=== PATIENT | male | born 1985 | race Caucasian/White ===

== ENCOUNTER 2017-11-08 15:41 | Emergency (ER) | payer OTHER ==
[2017-11-08] MEDS ORDERED: Aspirin 81 MG Tab.Chew PO ONE (15:48)
[2017-11-08] MEDS ORDERED: Sodium Chloride 0.9% 10 ML Syringe FLUSH PRN (15:48)
--- NOTE | 2017-11-08 16:34 | EDM.PDOC ---
ED HPI GENERAL MEDICAL PROBLEM - General Chief Complaint: Chest Pain Stated Complaint: SOB AND CHEST PAIN Time Seen by Provider: 11/08/17 15:48 Source of Information: Reports: Patient History Limitations: Reports: No Limitations - History of Present Illness INITIAL COMMENTS - FREE TEXT/NARRATIVE: The patient presents with shortness of breath and chest pain. This stared yesterday. He has mild pain to the mid chest. Taking a deep breath makes it worse. He has no fever or cough. He has no history of heart problems. He does not smoke. He has no abdominal pain, nausea or vomiting. Onset: Gradual Duration: Day(s): (2) Location: Reports: Chest Quality: Reports: Ache Severity: Mild Improves with: Reports: None Worsens with: Reports: Breathing Associated Symptoms: Reports: Chest Pain, Shortness of Breath. Denies: Cough, Fever/Chills, Nausea/Vomiting - Related Data Allergies Allergy/AdvReac Type Severity Reaction Status Date / Time No Known Allergies Allergy Verified 11/08/17 15:51 Home Meds: Home Meds . [No Known Home Meds] 11/08/17 [History] Past Medical History - Past Health History Medical/Surgical History: Denies Medical/Surgical History Social & Family History - Family History Cardiac: Reports: [place] Other Cardiac Family History: grandmother had heart attack, pt is insure what types of cardiac hx his aunts/uncles have had - Tobacco Use Smoking Status *Q: Never Smoker - Caffeine Use Caffeine Use: Reports: Soda - Recreational Drug Use Recreational Drug Use: No ED ROS GENERAL - Review of Systems Review Of Systems: See Below Constitutional: Reports: No Symptoms HEENT: Reports: No Symptoms Respiratory: Reports: Shortness of Breath Cardiovascular: Reports: Chest Pain Endocrine: Reports: No Symptoms GI/Abdominal: Reports: No Symptoms : Reports: No Symptoms Musculoskeletal: Reports: No Symptoms Skin: Reports: No Symptoms ED EXAM, GENERAL - Physical Exam Exam: See Below Exam Limited By: No Limitations General Appearance: Alert, No Apparent Distress Ears: Normal External Exam Nose: Normal Inspection Head: Atraumatic, Normocephalic Neck: Normal Inspection Respiratory/Chest: No Respiratory Distress, Lungs Clear, Normal Breath Sounds Cardiovascular: Regular Rate, Rhythm, No Edema, No Murmur GI/Abdominal: Soft, Non-Tender, No Organomegaly, No Mass Back Exam: Normal Inspection Extremities: Normal Inspection EKG INTERPRETATION EKG Date: 11/08/17 Time: 15:52 Rhythm: NSR Rate (Beats/Min): 81 [place]: Normal P-Wave: Present QRS: Normal ST-T: Normal QT: Normal Course - Vital Signs Last Recorded V/S: Last Vital Signs Temp 97.8 F 11/08/17 15:51 Pulse 86 11/08/17 15:51 Resp 18 11/08/17 15:51 BP 165/108 H 11/08/17 15:51 Pulse Ox 100 11/08/17 15:51 - Orders/Labs/Meds Orders: Active Orders 24 hr Category Date Time Status Cardiac Monitoring [RC] . DIRECTED Care 11/08/17 15:48 Active EKG Documentation Completion [RC] STAT Care 11/08/17 15:48 Active Peripheral IV Care [RC] . DIRECTED Care 11/08/17 15:49 Active Chest 1V Frontal [CR] Stat Exams 11/08/17 15:49 Taken Sodium Chloride 0.9% [Saline Flush] Med 11/08/17 15:48 Active 10 ml FLUSH ASDIRECTED PRN Peripheral IV Insertion Adult [OM.PC] Stat Oth 11/08/17 15:48 Ordered Medication Orders Sodium Chloride (Saline Flush) 10 ml FLUSH ASDIRECTED PRN PRN Reason: Keep Vein Open Last Admin: 11/08/17 15:55 Dose: 10 ml Labs: Laboratory Tests 11/08/17 11/08/17 11/08/17 Range/Units 16:15 16:15 16:15 WBC 5.52 (4.23-9.07) K/mm3 RBC 5.30 (4.63-6.08) M/mm3 Hgb 15.4 (13.7-17.5) gm/L Hct 44.2 (40.1-51.0) % MCV 83.4 (79.0-92.2) fl MCH 29.1 (25.7-32.2) pg MCHC 34.8 (32.2-35.5) g/dl RDW Std Deviation 40.5 (35.1-43.9) fL Plt Count 153 L (163-337) K/mm3 MPV 11.3 (9.4-12.3) fl Neut % (Auto) 54.3 (34.0-67.9) % Lymph % (Auto) 31.2 (21.8-53.1) % [place] % (Auto) 12.1 (5.3-12.2) % Eos % (Auto) 2.0 (0.8-7.0) Baso % (Auto) 0.2 (0.1-1.2) % Neut # (Auto) 3.00 (1.78-5.38) K/mm3 Lymph # (Auto) 1.72 (1.32-3.57) K/mm3 [place] # (Auto) 0.67 (0.30-0.82) K/mm3 Eos # (Auto) 0.11 (0.04-0.54) K/mm3 Baso # (Auto) 0.01 (0.01-0.08) K/mm3 D-Dimer, Quantitative 0.26 (0.19-0.59) mg/L Sodium 142 (136-145) mEq/L Potassium 4.5 (3.5-5.1) mEq/L Chloride 107 (98-107) mEq/L Carbon Dioxide 28 (21-32) mEq/L Anion Gap 11.5 (5-15) BUN 19 H (7-18) mg/dL Creatinine 1.0 (0.7-1.3) mg/dL Est Cr Clr Drug Dosing 115.32 mL/min Estimated GFR (MDRD) > 60 (>60) mL/min BUN/Creatinine Ratio 19.0 H (14-18) Glucose 108 H (74-106) mg/dL Calcium 9.2 (8.5-10.1) mg/dL Total Bilirubin 0.4 (0.2-1.0) mg/dL AST 16 (15-37) U/L ALT 33 (16-63) U/L Alkaline Phosphatase 87 (46-116) U/L Troponin I < 0.017 (0.00-0.056) ng/mL Total Protein 7.9 (6.4-8.2) g/dl Albumin 4.3 (3.4-5.0) g/dl Globulin 3.6 gm/dL Albumin/Globulin Ratio 1.2 (1-2) Meds: Medications Generic Name Dose Route Start Last Admin Trade Name Freq PRN Reason Stop Dose Admin Sodium Chloride 10 ml 11/08/17 15:48 11/08/17 15:55 Saline Flush FLUSH 10 ml ASDIRECTED PRN Administration Keep Vein Open Discontinued Medications Generic Name Dose Route Start Last Admin Trade Name Maggie PRN Reason Stop Dose Admin Aspirin 324 mg 11/08/17 15:48 11/08/17 15:54 Aspirin PO 11/08/17 15:49 324 mg ONETIME ONE Administration - Re-Assessments/Exams Free Text/Narrative Re-Assessment/Exam: 11/08/17 16:39 I ordered an IV saline lock, aspirin, EKG, CXR and labs. 11/08/17 17:08 His EKG shows a NSR with no acute changes. His CXR looks good. His labs all look good. His troponin is negative. This is pleurisy. I will discharge him home. Departure - Departure Time of Disposition: 17:10 Disposition: Home, Self-Care 01 Condition: Good Clinical Impression: Pleurisy Referrals: PCP,None [Primary Care Provider] - Marybel Daniel PA-C [Physician [facility]] - 1 Week Forms: ED Department Discharge Additional Instructions: Take motrin or aleve for pain. Try to avoid the cold air for a few days. Please return if you are worse. Follow up with Marybel Daniel if you are worse. - My Orders Last 24 Hours: My Active Orders 11/08/17 15:48 Cardiac Monitoring [RC] . DIRECTED EKG Documentation Completion [RC] STAT Sodium Chloride 0.9% [Saline Flush] 10 ml FLUSH ASDIRECTED PRN Peripheral IV Insertion Adult [OM.PC] Stat 11/08/17 15:49 Peripheral IV Care [RC] . DIRECTED Chest 1V Frontal [CR] Stat - Assessment/Plan Last 24 Hours: My Active Orders 11/08/17 15:48 Cardiac Monitoring [RC] . DIRECTED EKG Documentation Completion [RC] STAT Sodium Chloride 0.9% [Saline Flush] 10 ml FLUSH ASDIRECTED PRN Peripheral IV Insertion Adult [OM.PC] Stat 11/08/17 15:49 Peripheral IV Care [RC] . DIRECTED Chest 1V Frontal [CR] Stat
--- NOTE | 2017-11-09 15:44 | CR ---
Chest: Portable view of the chest was obtained. Comparison: No prior chest x-ray. Heart size and mediastinum are within normal limits for portable technique. Lungs are clear. Bony structures are grossly intact. Impression: 1. Nothing acute is identified on portable chest x-ray. Diagnostic code #1
== END 2017-11-08 17:25 | disposition home or self-care (01) ==
LOC: JD.ED 15:41
DX: R09.1 Pleurisy (principal)
CPT/HCPCS: 36415; 71045; 80053; 84484; 85025; 85379; 93005; 99285; A9270; J7050; 93010; 99283-25

== ENCOUNTER 2023-02-27 03:21 | Emergency (ER) | payer BC, OTHER ==
[2023-02-27] MEDS ORDERED: Sodium Chloride 0.9% 10 ML Syringe FLUSH PRN (03:47)
[2023-02-27 03:54] LABS: BASOPHILS ABSOLUTE AUTO 0.01 K/mm3 (0.01-0.08); BASOPHILS PERCENT AUTO 0.1 % (0.1-1.2); EOSINOPHILS ABSOLUTE AUTO 0.02 K/mm3 (0.04-0.54); EOSINOPHILS PERCENT AUTO 0.2 (0.8-7.0); IMMATURE GRAN ABSOLUTE AUTO 0.03 K/mm3 (0.00-0.10); IMMATURE GRAN PERCENT AUTO 0.2 % (<=1.0); LYMPHOCYTES ABSOLUTE AUTO 1.29 K/mm3 (1.32-3.57); LYMPHOCYTES PERCENT AUTO 10.1 % (21.8-53.1); MEAN CORPUSCULAR HEMOGLOBIN 29.8 pg (25.7-32.2); MEAN CORPUSCULAR HGB CONC 34.8 g/dl (32.2-35.5); MEAN CORPUSCULAR VOLUME 85.7 fl (79.0-92.2); MONOCYTES ABSOLUTE AUTO 0.69 K/mm3 (0.30-0.82); MONOCYTES PERCENT AUTO 5.4 % (5.3-12.2); NEUTROPHILS ABSOLUTE AUTO 10.67 K/mm3 (1.78-5.38); PLATELET COUNT,PLT 175 K/mm3 (163-337); RED BLOOD CELL COUNT 5.37 M/mm3 (4.63-6.08); WHITE BLOOD CELL COUNT,WBC 12.71 K/mm3 (4.23-9.07)
[2023-02-27] MEDS ORDERED: Ondansetron 4 MG/2 ML SDV IVPUSH ONE (04:03)
[2023-02-27] MEDS ORDERED: Sodium Chloride 0.9% 1,000 ML IV ONE (04:04)
[2023-02-27 04:11] LABS: A/G RATIO 1.2 (1-2); ALBUMIN 4.4 g/dl (3.4-5.0); BILIRUBIN TOTAL 0.5 mg/dL (0.2-1.0); BUN/CREATININE RATIO 15.5 (14-18); CALCIUM 9.1 mg/dL (8.5-10.1); POTASSIUM,K 4.1 mEq/L (3.5-5.1)
[2023-02-27 04:19] LABS: ANION GAP 14.1 (5-15); EST CRCL DRUG DOSING (CG) 54.97 mL/min
[2023-02-27 05:29] LABS: APPEARANCE,URINE CLEAR (Clear); BILIRUBIN,URINE NEGATIVE (Negative); COLOR,URINE YELLOW (Yellow); GLUCOSE,URINE NEGATIVE (Negative); KETONES,URINE TRACE (Negative); LEUKOCYTE ESTERASE,URINE NEGATIVE (Negative); NITRITE,URINE NEGATIVE (Negative); OCCULT BLOOD,URINE 3+ (Negative); PH,URINE 5.5 (5.0-8.0); PROTEIN,URINE 1+ (Negative); UROBILINOGEN,URINE 0.2 (0.2-1.0)
[2023-02-27 06:00] LABS: BACTERIA,URINE FEW /hpf (FEW); RBC,URINE 50-75 /hpf (0-5); SQUAMOUS EPITHELIAL CELLS,UR 0-5 /hpf (0-5); WBC,URINE 0-5 /hpf (0-5)
[2023-02-27 06:01] LABS: MUCUS,URINE FEW /hpf (FEW)
== END 2023-02-27 05:55 | disposition home or self-care (01) ==
LOC: JD.ED 03:21
DX: N13.2 Hydronephrosis with renal and ureteral calculous obstruction (principal); Z88.1 Allergy status to other antibiotic agents
CPT/HCPCS: 36415; 74176; 80053; 81001; 85025; 96361; 96374; 99284; J2405; J3490; J7030

== ENCOUNTER 2023-06-22 12:34 | Emergency (ER) | payer BC ==
[2023-06-22 13:46] LABS: APPEARANCE,URINE SLT CLOUDY (Clear); BILIRUBIN,URINE NEGATIVE (Negative); COLOR,URINE YELLOW (Yellow); GLUCOSE,URINE NEGATIVE (Negative); KETONES,URINE NEGATIVE (Negative); LEUKOCYTE ESTERASE,URINE 1+ (Negative); NITRITE,URINE NEGATIVE (Negative); OCCULT BLOOD,URINE TRACE-LYSED (Negative); PH,URINE 5.5 (5.0-8.0); PROTEIN,URINE NEGATIVE (Negative); UROBILINOGEN,URINE 0.2 (0.2-1.0)
[2023-06-22 14:02] LABS: EPITHELIAL CELLS,URINE NOT SEEN /hpf (0-5); RBC,URINE 0-5 /hpf (0-5)
[2023-06-22 14:03] LABS: AMORPHOUS SEDIMENT,URINE MANY /hpf (NOT SEEN); BACTERIA,URINE MODERATE /hpf (FEW); MUCUS,URINE FEW /hpf (FEW)
== END 2023-06-22 14:50 | disposition home or self-care (01) ==
LOC: JD.ED 12:34
DX: T83.012A Breakdown (mechanical) of nephrostomy catheter, initial encounter (principal); Z86.16 Personal history of COVID-19; Z88.1 Allergy status to other antibiotic agents
CPT/HCPCS: 74176; 74176-26; 81001; 99283; 99284

== ENCOUNTER 2024-09-13 20:45 | Emergency (ER) | payer BC ==
[2024-09-13] MEDS: Aspirin 81 MG Tab.Chew PO ONE (21:19)
[2024-09-13] MEDS: Sodium Chloride 0.9% 1,000 ML IV ONE (21:20)
[2024-09-13] MEDS: Acetaminophen 325 MG Tab PO ONE (21:20)
[2024-09-13 22:40] LABS: BASOPHILS PERCENT AUTO 0.3 % (0.0-1.0); EOSINOPHILS ABSOLUTE AUTO 0.1 K/mm3 (0.0-0.4); EOSINOPHILS PERCENT AUTO 1.8 % (0.0-6.0); HEMATOCRIT 44.8 % (42.0-52.0); HEMOGLOBIN 15.5 gm/dl (14.0-18.0); IMMATURE GRAN ABSOLUTE AUTO 0.01 K/mm3 (0.00-0.05); IMMATURE GRAN PERCENT AUTO 0.2 % (0.0-0.4); LYMPHOCYTES ABSOLUTE AUTO 2.3 K/mm3 (1.0-4.8); LYMPHOCYTES PERCENT AUTO 34.3 % (24.0-44.0); MEAN CORPUSCULAR HEMOGLOBIN 29.6 pg (28.0-32.0); MEAN CORPUSCULAR HGB CONC 34.6 g/dl (32.0-36.0); MEAN CORPUSCULAR VOLUME 85.7 fl (83.0-99.0); MEAN PLATELET VOLUME 11.6 fl (9.4-12.4); MONOCYTES ABSOLUTE AUTO 0.5 K/mm3 (0.0-0.8); MONOCYTES PERCENT AUTO 7.5 % (0.0-8.0); NEUTROPHILS ABSOLUTE AUTO 3.7 K/mm3 (1.8-7.7); NEUTROPHILS PERCENT AUTO 55.9 % (41.0-71.0); PLATELET COUNT,PLT 159 K/mm3 (150-400); RED BLOOD CELL COUNT 5.23 M/mm3 (4.52-5.90); WHITE BLOOD CELL COUNT,WBC 6.56 K/mm3 (3.9-11.3)
[2024-09-13 22:50] LABS: A/G RATIO 1.1 (1-2); ANION GAP 13.9 (5-15); BILIRUBIN TOTAL 0.3 mg/dL (0.2-1.0); BUN/CREATININE RATIO 12.1 (14-18); CREATININE 1.4 mg/dL (0.7-1.3); EST CRCL DRUG DOSING (CG) 76.98 mL/min; PROTEIN TOTAL,TP 7.6 g/dl (6.4-8.2)
[2024-09-13 22:52] LABS: APPEARANCE,URINE CLEAR (Clear); BILIRUBIN,URINE NEGATIVE (Negative); COLOR,URINE LIGHT YELLOW (Yellow); GLUCOSE,URINE NEGATIVE (Negative); KETONES,URINE NEGATIVE (Negative); LEUKOCYTE ESTERASE,URINE NEGATIVE (Negative); NITRITE,URINE NEGATIVE (Negative); OCCULT BLOOD,URINE NEGATIVE (Negative); PROTEIN,URINE NEGATIVE (Negative); UROBILINOGEN,URINE 0.2 (0.2-1.0)
[2024-09-13 23:01] LABS: POTASSIUM,K 3.9 mEq/L (3.5-5.1)
[2024-09-13 23:01] LABS: BARBITURATE SCREEN,URINE NEGATIVE (CUTOFF=200); BENZODIAZEPINES SCREEN,URINE NEGATIVE (CUTOFF=150); BUPRENORPHINE SCREEN,URINE NEGATIVE (CUTOFF=10); METHADONE SCREEN, URINE NEGATIVE (CUT0FF=200); METHAMPHETAMINES SCREEN, URINE NEGATIVE (CUTOFF=500); OXYCODONE SCREEN,URINE NEGATIVE (CUT0FF=100); THC SCREEN,URINE 20 NG/ML NEGATIVE (CUTOFF=50)
[2024-09-13 23:12] LABS: AMPHETAMINES SCREEN, URINE NEGATIVE (CUTOFF=500)
[2024-09-13 23:17] LABS: BACTERIA,URINE RARE /hpf (FEW); EPITHELIAL CELLS,URINE NOT SEEN /hpf (0-5); MUCUS,URINE NOT SEEN /hpf (FEW); RBC,URINE NOT SEEN /hpf (0-5); WBC,URINE NOT SEEN /hpf (0-5)
== END 2024-09-13 23:45 | disposition home or self-care (01) ==
LOC: JD.ED 20:45
DX: I12.9 Hypertensive chronic kidney disease with stage 1 through stage 4 chronic kidney disease, or unspecified chronic kidney disease (principal); N18.9 Chronic kidney disease, unspecified; E86.9 Volume depletion, unspecified; R09.1 Pleurisy; Z86.16 Personal history of COVID-19; Z88.1 Allergy status to other antibiotic agents; Z79.899 Other long term (current) drug therapy
CPT/HCPCS: 36415; 80053; 80306; 81001; 82550; 83690; 84484; 85025; 85379; 93005; 96360; 96361; 99285; A9270; J7030; 93010; 99284